=== PATIENT | female | born 1980 | race Caucasian/White ===

== ENCOUNTER 2016-11-22 00:38 | Emergency (ER) | payer OTHER ==
[~2016-11-22] VITALS: Ht 175.3 cm; Wt 73.2 kg
[2016-11-22 00:48] VITALS: BP 115/85; PULSE 98; RESP 18; O2SAT 96
--- NOTE | 2016-11-22 01:00 | ED.REPORT ---
HPI-Psychiatric Illness Date of Service November 22, 2016 ED Provider: Tim Renner MD A 36 year old female with a history of bipolar disorder is brought to the ED by her partner due to a manic episode. The pt began to "see codes emerging from the bible" three days ago, which prompted a manic episode that has lasted since. She has not been sleeping or eating normally, her pupils were dilated yesterday, and has been "too distracted" to take any of her medications. She "solved" the mathematical codes tonight that she had been attempting to decipher and is now calming down. Per pt's partner, she is noncompliant with her medications and has been on and off of them for some time, choosing instead to self-medicate with marijuana. This, however, is her first manic episode. Nursing Notes Stated Complaint: MANIAC EPISODE Chief Complaint: General Complaint Nursing Notes Reviewed: Yes Allergies: Coded Allergies: No Known Allergies (Unverified Allergy, Unknown, 03/13/14) General Time Seen by MD: 00:44 Chief Complaint Manic Hx Obtained From: Patient, Other family... Arrived By: Walk-in Onset Occurred: 3 days ago Symptom Duration: Since onset Recent Healthcare: No recent hospitalization, Recent doctor visit Similar Sx Previous: No Risk-Psychiatric Illness Suicide Risk Stratification Suicide Risk Factors - Adult: : Substance abuse (THC)No: Prior psych admission RF Statements: Risk factors reviewed Past Medical History Past Medical History bipolar disorder Past Surgical History none reported Smoking History Current Every Day Smoker Social History Drug Use: THC Other Social History: Good social support Ambulatory Status Independent Review of Systems Review of Systems Note: manic episode Respiratory: Denies: Non-productive cough, Shortness of breath Cardiovascular: Denies: Chest pain GI: Denies: Abdominal pain Skin: Denies Rash Complete sys rev & neg: except as marked. Physical Exam Initial Vital Signs Vital Signs (First) Date Time Temp Pulse Resp B/P Pulse Ox O2 Delivery O2 Flow Rate FiO2 11/22/16 00:48 36.6 98 18 115/85 96 Room Air Initial VS: Reviewed, Vital signs normal General/Constitutional: Awake, Alert Neurologic: Oriented X3, No motor deficits, No sensory deficits Psychiatric: Not suicidal, Not homicidal delusional pressured speech manic Head / Eyes: Atraumatic, Normocephalic, PERRL, EOMI ENT: Atraumatic, Airway patent, Mucous membranes moist Respiratory / Chest: Atraumatic, Breath sounds NL, Breath sounds = bilat, No respiratory distress Cardiovascular: Heart rate NL, Regular rhythm, Heart sounds NL Abdomen: Atraumatic, Soft, Non-tender Skin: Atraumatic, Color NL, No rash, Warm, Dry Neck: Atraumatic, Supple, Full range of motion Back: Atraumatic, Full range of motion Upper Extremity / MS: Atraumatic, Full range of motion Lower Extremity / Pelvis / MS: Atraumatic, Full range of motion Interpretation & Diagnostics Lab Results Interpretation Result Diagram: 11/22/16 0155 11/22/16 0155 Test 11/22/16 01:55 White Blood Count 11.7th/mm3 (3.8-10.1) Red Blood Count 4.85mil/mm3 (3.90-5.20) Hemoglobin 14.3g/dL (12.0-15.6) Hematocrit 41.1% (35.0-46.0) Mean Corpuscular Volume 84.7fL (81-100) Mean Corpuscular Hemoglobin 29.5pg (27.0-35.0) Mean Corpuscular Hemoglobin Concent 34.8% (32.0-37.0) Red Cell Distribution Width 13.1% (12.3-15.4) Platelet Count 257bil/L (150-400) Neutrophils (%) (Auto) 56.9% (40-74) Lymphocytes (%) (Auto) 29.8% (14-46) Monocytes (%) (Auto) 11.7% (4-12) Eosinophils (%) (Auto) 0.9% (0-5) Basophils (%) (Auto) 0.4% (0-3) Sodium Level 137mEq/L (134-144) Potassium Level 3.6mEq/L (3.5-5.2) Chloride Level 99mEq/L (97-108) Carbon Dioxide Level 22mmol/L (18-29) Blood Urea Nitrogen 15mg/dL (6-20) Creatinine 0.68mg/dL (0.57-1.00) Estimat Glomerular Filtration Rate 139mL/min (>59) Glucose Level 168mg/dL (60-99) Calcium Level 9.3mg/dL (8.5-10.1) Total Bilirubin 0.4mg/dL (0.0-1.2) Aspartate Amino Transf (AST/SGOT) 11U/L (0-50) Alanine Aminotransferase (ALT/SGPT) 6U/L (0-32) Alkaline Phosphatase 61U/L (25-150) Total Protein 7.2g/dL (6.4-8.4) Albumin 4.4g/dL (3.4-5.0) Thyroid Stimulating Hormone (TSH) 1.120uIU/mL (0.450-4.500) Hold Culver Top Tube Received (Received) Lab values outside NL range: no clinical significance. Re-Eval/Medical Decision Med Decision/Clinical Course 36-year-old female who is quite manic for the last 4-5 days with decreased sleep. She has chosen not to take her medication for the last couple days. Labs are unremarkable with no evidence of thyroid disease. She was given Zyprexa 10 mg by mouth and permission to resume her regular medications. She has an appointment later this week with her prescribing provider. She does not meet any custodial criteria and is not homicidal or suicidal. Source of Hx: Old records Re-Evaluation/Progress : Time of Eval: 02:51 Patient Status: Condition improved Re-Evaluation/Progress Note: Pt rechecked, who is sleeping but arousable. The diagnosis and plan for discharge are discussed. The pt understands and agrees with the plan. All questions are addressed at this time. Counseled Regarding: Diagnosis, Lab results, Need for follow-up, When/why to return to ED Discharge & Departure Impression: Primary Impression: Bipolar 1 disorder with moderate meghan Disposition: Home Discharge Condition All VS Reviewed: Yes Condition: Stable Patient Instructions: Bipolar Disorder (ED) Additional Instructions: Your labs are all normal. Resume your regular medications. Contact your prescribing provider today or tomorrow for further evaluation and treatment. Return to the emergency room if he worsens significantly. You received Zyprexa to help her sleep tonight. Referrals: RAFY LOPEZ MD,Cee HARDY Scribe Attestation Portions of this note were transcribed by Isa Andrea. I, Dr. Renner personally performed the history, physical exam and medical decision-making; I reviewed and confirmed the accuracy of the information in the transcribed note. Signed by: Alfred Valero, 11/22/16 and 0308. copies to: RAFY LOPEZ MD; Cee Campos Howard L MD November 22, 2016 01:00 ISA ANDREA November 22, 2016 01:20
[2016-11-22] MEDS ORDERED: OLANZapine Zydis ODT 5 mg Tablet PO ONE (01:20)
[2016-11-22 02:01] LABS: BASOPHILS % (AUTO) 0.4 % (0-3); EOSINOPHILS % (AUTO) 0.9 % (0-5); MONOCYTES % (AUTO) 11.7 % (4-12); Mean Corpuscular Hemoglobin 29.5 pg (27.0-35.0); Mean Corpuscular Volume 84.7 fL (81-100); NEUTROPHILS % (AUTO) 56.9 % (40-74); Platelet Count 257 bil/L (150-400)
[2016-11-22 03:06] VITALS: BP 108/76; PULSE 86; RESP 16; O2SAT 96
== END 2016-11-22 03:02 | disposition home or self-care (01) ==
LOC: SED 00:38
DX: F30.12 Manic episode without psychotic symptoms, moderate (principal); F17.200 Nicotine dependence, unspecified, uncomplicated